=== PATIENT | male | born 1965 | race Caucasian/White ===

== ENCOUNTER → 2022-06-26 | Day surgery (SDC) | payer SELFPAY ==
[2022-06-21 16:22] VITALS: BMI 29.0
[~2022-06-26] MED LIST: DEXAMETHASONE SOD PHOSPHATE 4 MG/1 ML VIAL ONE; EPINEPHrine/PF 1 MG/1 ML (1:1,000) AMPULE ONE; ERYTHROMYCIN 0.5% OPHTHALMIC OINTMENT 3.5 GM TUBE ONE; KETAMINE HCL 200 MG/20 ML VIAL ONE; KETOROLAC TROMETHAMINE 30 MG/1 ML VIAL ONE; LIDOCAINE HCL 1%, 10 MG/ML (20ML VIAL) ONE; MIDAZOLAM HCL 2 MG/2 ML SINGLE DOSE VIAL ONE; ONDANSETRON 4 MG/2 ML VIAL IVPUSH PRN; ONDANSETRON 4 MG/2 ML VIAL ONE; POVIDONE-IODINE 5% OPHTHALMIC PREP 30 ML SOLUTION ONE; PROMETHAZINE HCL 25 MG/1 ML VIAL IVPUSH PRN; PROPOFOL 60 ML ONE; SUCCINYLCHOLINE CHLORIDE 200 MG/10 ML SYRINGE ONE; TETRACAINE 0.5% OPHTH SOLN 2 ML BOTTLE ONE; ceFAZolin SODIUM 1 GM VIAL ONE; oxyCODONE HCL 5 MG TABLET PO PRN
[2022-06-26 11:30] VITALS: TEMP 97.8
[2022-06-26 11:57] VITALS: BP 110/70; PULSE 67; RESP 18
== END | disposition home or self-care (01) ==
LOC: FASU 05:58
PROVIDERS: ATTEND Ophthalmology
PROC: 080N0ZZ Alteration of Right Upper Eyelid, Open Approach (ICD-10-PCS; 2022-06-26)
PROC: 080P0ZZ Alteration of Left Upper Eyelid, Open Approach (ICD-10-PCS; principal; 2022-06-26 08:16)
DX: H02.831 Dermatochalasis of right upper eyelid (principal); H02.834 Dermatochalasis of left upper eyelid
CPT/HCPCS: 94760

== ENCOUNTER 2023-04-24 14:14 | Observation (INO) | payer MEDICARE, OTHER ==
[2023-04-24] MEDS ORDERED: LACTATED RINGERS SOLUTION 1,000 ML/1,000 ML INFUS.BAG IV SCH (17:15)
[2023-04-24] MEDS ORDERED: ACETAMINOPHEN 1000 MG/100 ML BAG IVPB ONE (17:59)
[2023-04-24] MEDS ORDERED: ACETAMINOPHEN INJECTION 100 ML IVPB ONE (18:00)
[2023-04-24] MEDS ORDERED: PHENAZOPYRIDINE HCL 100 MG TABLET (FP) PO ONE (19:03)
[2023-04-24] MEDS ORDERED: PHENAZOPYRIDINE HCL 100 MG TABLET (FP) ONE (19:14)
[2023-04-24] MEDS ORDERED: LACTATED RINGERS SOLUTION 1000 ML INFUS.BAG IV ONE (19:27)
[2023-04-24 19:57] LABS: BASO % 0.5 % (0-2.0); EOS % 1.9 % (0-4.5); HEMATOCRIT 42.1 % (35.4-49); HEMOGLOBIN 14.8 GM/dL (11.7-16.9); LYMPH % 14.4 % (8-40); MCH 30.5 pg (25.7-33.7); MCHC 35.2 g/dl (32.0-35.9); MEAN CELL VOLUME 86.7 fl (80-96); MEAN PLT VOLUME 7.2 fl (7.5-11.1); MONO % 8.7 % (3.8-10.2); NEUT % 74.5 % (42.8-82.8); PLATELET COUNT 215 10^3/uL (134-434); RBC 4.85 M/mm3 (4.00-5.60); RDW 14.4 % (11.9-15.9); WHITE BLOOD COUNT 6.7 K/mm3 (4.0-10.0)
[2023-04-24 20:04] LABS: INR 1.06 (0.83-1.09); PROTHROMBIN TIME (PATIENT) 12.3 SEC (9.7-13.0)
[2023-04-24 20:07] LABS: ACTIVATED PTT 27.8 SECONDS (25.2-36.5)
[2023-04-24 20:23] LABS: POTASSIUM 4.4 mmol/L (3.5-5.1)
[2023-04-24 20:25] LABS: CALCIUM 8.6 mg/dL (8.5-10.1)
[2023-04-24 20:26] LABS: ALBUMIN 3.6 g/dl (3.4-5.0); BLOOD UREA NITROGEN 23.3 mg/dL (7-18)
[2023-04-24 20:29] LABS: CREATININE 1.3 mg/dL (0.55-1.3)
[2023-04-24 20:30] LABS: TOT PROT 5.9 g/dl (6.4-8.2)
[2023-04-24 20:31] LABS: BILIRUBIN,TOTAL 0.5 mg/dL (0.2-1)
[2023-04-24 20:59] LABS: EPI CELLS 2 /uL (0-25.1); HYALINE CASTS 0 /uL (0-3.1); PH,URINE 5.5 (5.0-8.0); URINE APPEARANCE CLEAR; URINE BILIRUBIN NEGATIVE (NEGATIVE); URINE COLOR DK YELLOW; URINE GLUCOSE (UA) NEGATIVE (NEGATIVE); URINE KETONE NEGATIVE (NEGATIVE); URINE LEUK ESTERASE TRACE (NEGATIVE); URINE NITRITE POSITIVE (NEGATIVE); URINE PROTEIN NEGATIVE (NEGATIVE); URINE RBC 213 /uL (0-23.9); URINE WBC 11 /uL (0-25.8)
[2023-04-25 06:20] VITALS: RESP 18
[2023-04-25 09:31] VITALS: BMI 27.3
[2023-04-25] MEDS ORDERED: ACETAMINOPHEN 500 MG TABLET (FP) PO PRN (11:15)
[2023-04-25 18:24] VITALS: BP 126/78; PULSE 78; TEMP 98.1
== END 2023-04-25 19:11 | disposition home or self-care (01) ==
LOC: JER 14:14 → JERBED 19:29 → J5S 04-25 09:01
PROVIDERS: ADMIT Urology; ATTEND Urology
PROC: 3E033NZ Introduction of Analgesics, Hypnotics, Sedatives into Peripheral Vein, Percutaneous Approach (ICD-10-PCS; principal; 2023-04-24)
PROC: 3E0337Z Introduction of Electrolytic and Water Balance Substance into Peripheral Vein, Percutaneous Approach (ICD-10-PCS; 2023-04-24)
DX: R55 Syncope and collapse (principal); E78.5 Hyperlipidemia, unspecified; I10 Essential (primary) hypertension; Z87.891 Personal history of nicotine dependence; G62.89 Other specified polyneuropathies; G89.29 Other chronic pain
CPT/HCPCS: 36415; 80053; 81003; 82962; 83605; 85025; 85610; 85730; 87086; 93005; 93010; 96361; 96374; 99285-25; G0378